=== PATIENT | female | born 1950 | race Caucasian/White ===

== ENCOUNTER 2020-02-12 20:43 | Inpatient (IN) | payer MEDICARE, BC, SELFPAY ==
[2020-02-12] VITALS (29 sets, daily range): BP systolic 123–170; BP diastolic 53–89; PULSE 66–91; RESP 15–25; TEMP 36.6–36.7; O2SAT 94–97
--- NOTE | 2020-02-12 20:52 | W.PM.HP.N ---
Date of service: 02/12/20 Time of Service: 20:52 Assessment and Plan Assessment and plan (1) Chest pain at rest: Status: Acute Assessment and plan: R/O NM Troponin levels have been negative. EKG showed anterolateral ST depression; repeat in AM and prn CP Cont heparin and nitroglycerin drips. ASA daily. Loading dose of Plavix 300mg given. Cont Plavix 75mg po daily. Planning transfer to [facility] tomorrow. Arrangements made by ED physician, Dr Childers, at [facility]. Telemetry. (2) Essential hypertension: Status: Acute Assessment and plan: Appx 1 month ago initiated on low dose amlodipine at 2.5mg daily. Cont and monitor BP (3) Glaucoma: Status: Chronic Assessment and plan: Cont home eye drops. History of Present Illness History of Present Illness Chief Complaint: Chest pain Narrative: This is a 69 yo female with a PMH of recently dxd HTN, glaucoma acute stress disorder, neuropahty of feet. No prior h/o CAD. She presented to the ED at [facility] with c/o central chest pressure that radiated to her back / upper scapula and down both arms. She described noting her heart was beating somewhat fast and she developed mild SOA and diaphoresis. No N/V. She did endorse a residual MILLIGAN afterwards. She had just woken from a nap when this occurred. It persisted at it's peak for appx 20 mins. She reported a similar episode appx 1 week prior. At the time of transfer to [facility] her pain was a 0.5/10. Her presenting vital signs at [facility] were: RR 18, HR 102, BP 163/91, T 96.1, ?RA O2 sat. of 95% Pain level 4. WBC count 7.0. Hgb 15.1. Cr 0.7. Mg 2.4. K 3.6. LFTs normal. Her EKG showed mild anterolateral ST depression. Her troponin was negative x 3. CXR was normal. She denied cough/fever/chills. ED physician spoke with Manager Product Design at [facility]; no bed available but plan on accepting her in transfer tomorrow. Heparin and Nitroglycerine drips initiated. Pt stable upon transfer to [facility]. Her PMH, SH and social history were reviewed in documents from [facility]. Review of Systems All systems reviewed & are unremarkable except as noted in HPI and below Exam Const General: cooperative, comfortable and no acute distress Nutritional Appearance: overweight Orientation: alert and oriented x3 Eyes Sclera: sclerae normal EOM: EOM intact bilaterally Neck Neck: full ROM and no JVD Resp Effort & Inspection: normal respiratory effort Auscultation: clear to auscultation bilaterally Cardio Rate: regular rate Rhythm: regular rhythm Heart Sounds: S1 normal and S2 normal GI Palpation: soft and nontender Auscultation: normal bowel sounds Skin General skin exam: no rashes or lesions noted Extrem General: no pedal edema and no calf tenderness Psych Appearance: grossly normal Mental Status: mental status grossly normal Speech and Movement: speech and movement normal Affect: normal affect Attitude: cooperative
[2020-02-12] MEDS: Latanoprost 0.005% 2.5 ML BTL OU (23:35)
[2020-02-13] VITALS (50 sets, daily range): BP systolic 97–165; BP diastolic 49–102; PULSE 61–85; RESP 13–28; TEMP 36.3–36.4; O2SAT 91–96
[2020-02-13] MEDS: Acetaminophen 325 MG TAB 650 MG PO (00:08)
--- NOTE | 2020-02-13 00:38 | NUR.NOTE ---
Nursing Note: train engineer at bedside to obtain 0001 aPTT.
[2020-02-13 01:03] LABS: PTT Activated 61.2 sec (21.0-31.4)
[2020-02-13 06:30] LABS: Abs Immature Grans 0.01 10^3/uL (0.0-0.06); Absolute Basophil Count 0.08 10^3/uL (0.0-0.2); Absolute Lymphocyte Count 2.32 10^3/uL (1.2-3.4); Absolute Neutrophil Count 3.78 10^3/uL (1.2-6.7); Basophils % 1.1; Eosinophils % 2.8; HCT 44.3 % (36.0-46.0); HGB 14.2 g/dL (11.2-15.7); Immature Grans % 0.1; Lymphocytes % 32.7; MCH 28.7 pg (27.0-33.0); MCHC 32.1 % (32.0-36.0); MCV 89.5 fL (80-95); MPV 10.3 fL (8.0-11.0); Monocytes % 9.9; Neutrophils % 53.4; Nucleated RBC 0 %; Platelet Count 280 10^3/uL (130-400); RBC 4.95 10^6/uL (3.93-5.22); RDW 13.1 % (11.7-14.6); RDW-SD 42.9 fL; WBC 7.09 10^3/uL (4.4-10.8)
[2020-02-13 06:47] LABS: ALT 26 U/L (14-59); AST 26 U/L (15-37); Albumin 3.4 g/dL (3.4-5.0); Alkaline Phosphatase 86 U/L (46-116); Anion Gap 8.7 mmol/L (3-11); BUN 21 mg/dL (7-18); Bilirubin, Total 0.3 mg/dL (0.2-1.0); CO2 26.3 mmol/L (21.0-32.0); Calcium 8.8 mg/dL (8.5-10.1); Calculated LDL 106 mg/dL (<100); Chloride 107 mmol/L (98-107); Cholesterol 186 mg/dL (<200); Glucose 112 mg/dL (74-106); HDL Cholesterol 50 mg/dL (40-60); Potassium 3.3 mmol/L (3.5-5.1); Sodium 142 mmol/L (136-145); Triglyceride 153 mg/dL (<150)
--- NOTE | 2020-02-13 08:00 | RT.EKG_ITS ---
APPROVED REPORT Exam: Resting ECG Patient Location: I HR:77 bpm ECG Measurements Heart Rate 77 AXIS OR 157 P 49 QRSd 89 QRS 22 QT 403 T 117 QTc 455 Conclusion Sinus rhythm...normal P axis, V-rate 60- 99 Repol abnrm suggests ischemia, lateral leads...ST dep, T neg, I aVL V5 V6
[2020-02-13 08:37] LABS: Troponin I 0.21 ng/mL (<0.06)
--- NOTE | 2020-02-13 08:42 | PDOC.CMIN ---
- If Service Date Differs Date of service: 02/13/20 Time of Service: 08:42 Care Management Initial Assess REASON FOR HOSPITALIZATION:: Chest Pain PAST MEDICAL HISTORY/PAST SURGICAL HISTORY:: None noted PREVIOUS FUNCTIONAL STATUS/SOCIAL/FAMILY SUPPORTS:: Tiffanie lives in a single family home in [place], [place] with her of 50 years, Severo. They have 2 children, a son and a daughter and 4 grandchildren. Their daughter lives in [place], [place] and their son lives in [place], [place]. 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 They met at and got engaged in their senior year. Tiffanie is independent and active at baseline. CURRENT FUNCTIONAL STATUS:: Tiffanie was sitting up in bed when CM met with her. She was very pleasant and engaged readily in conversation. Tiffanie shared a story about her grand daughter who got an ECOLI 0157 infection at age 4 and ended up with multi-organ system involvement. She required a kidney transplant and other surgeries, but is now 16 and doing extremely well. She, like so many other people, has not been able to see her family for months due to Covid. Tiffanie is awaiting a bed at [facility]. She also shared that both her brother and sister have has heart attacks, as well as her young niece. ADVANCE DIRECTIVES:: none on file but has completed them and believes [facility] has a copy. Has patient been provided with info about the portal/API?: No Did the patient sign up for the portal?: No (goes to [facility]) CODE STATUS:: Full Code INSURANCE COVERAGE / FINANCIAL ISSUES:: Medicare. BC BS CURRENT HOME/COMMUNITY SERVICES/EQUIPMENT:: none PRIMARY CARE PHYSICIAN:: none POTENTIAL DISCHARGE NEEDS:: follow up with cardiology, PCP and discharge plan of care PATIENT/FAMILY EDUCATION NEEDS:: Discharge plan, follow up plan, limitations, Ask Me Three TRANSPORTATION:: via ambulance coordinated by nursing vine fruit farming supervisor PLAN:: Tiffanie is waiting for a bed at [facility]. She will be transported by ambulance coordinated by nursing vine fruit farming supervisor. CM will continue to support patient and family until transfer occurs.
[2020-02-13 08:45] LABS: PTT Activated 59.6 sec (21.0-31.4)
[2020-02-13] MEDS: DULoxetine 30 MG CAP 60 MG PO (08:50)
[2020-02-13] MEDS: Metoprolol 12.5 MG TAB PO ×2 (08:50→10:00)
[2020-02-13] MEDS: Aspirin 81 MG CHEW PO (08:50)
[2020-02-13] MEDS: Atorvastatin 40 MG TAB 80 MG PO (08:50)
[2020-02-13] MEDS: Clopidogrel 75 MG TAB PO (08:50)
[2020-02-13] MEDS: amLODIPine 2.5 MG TAB PO (08:50)
[2020-02-13] MEDS: Potassium Chloride 20 MEQ TABCR 40 MEQ PO (08:50)
--- NOTE | 2020-02-13 09:22 | PGE_ITS ---
Date of Service Date of service: 02/13/20 Time of Service: 09:22 Assessment and Plan Assessment and plan (1) Non-STEMI (non-ST elevated myocardial infarction): Status: Acute Assessment and plan: Patient allegedly had nonobstructive disease 8 to 10 years ago per cardiac catheterization. I do not have her catheterization results. Nevertheless she has a positive troponin of 0.21 this morning whereas it had been normal yesterday. This may be blood pressure related and due to stress-induced ischemia. Her EKG is not showing any ST elevation but rather shows LVH with strain. Nevertheless this warrants further evaluation and I agree with continued heparinization as well as dual antiplatelet therapy. Furthermore I have added beta-helen at Lopressor 25 mg every 8 hours for both rate control as well as blood pressure control and anti-ischemic effect. I have added atorvastatin at 80 mg nightly to her regimen. Since she is on nitroglycerin drip I Maggie withhold her amlodipine for now. The plan is for her to be transferred to [facility] where cardiology can evaluate her. Furthermore she needs echocardiogram to evaluate her heart murmur which I think is aortic sclerosis by auscultation but could be aortic stenosis. I did not appreciate any bruits in her neck nor any diminution in her carotid pulses. Echocardiogram is not available today at [facility]. She remains hemodynamically stable and her chest pain is relatively well controlled. (2) Essential hypertension: Status: Acute Assessment and plan: Nitrates and beta-blockers for anti-ischemic effect as well as blood pressure control. (3) Hypercholesterolemia: Status: Acute Assessment and plan: Begin high-dose statin with atorvastatin 80 mg nightly Subjective Subjective Interval history since last seen: 69-year-old female former smoker who quit 18 years ago recently diagnosed with essential hypertension started on amlodipine about a month ago who presented with symptoms of chest tightness with radiation into her shoulders and down both arms and into her back associated with a headache onset at 3 pm yesterday, not associated w/ exertion. Patient states that her BP yesterday was running in the 150's systolic. She had similar episodes about a week ago but not as severe that were transient. Both episodes occurred while at rest. Patient had a remote cardiac work-up about 8 to 10 years ago in which she had a cardiac catheterization at [facility] [place] [facility] and was told that she had no significant coronary disease. She had a follow-up with Dr. Moore from [facility] whom she saw here at [facility] . She said that he had told her that her heart was in good shape and she did not need to worry about a heart attack. Nevertheless she has multiple risk factors including essential hypertension, multiple family members with coronary artery disease including a sister and her brother who both had heart attacks in their late 60s or early 70s. Patient denies any personal history of diabetes mellitus or hyperlipidemia although her lipid profile this morning shows that she has some mild hypercholesterolemia. She presented to [facility] in [facility] last night after the acute onset of chest discomfort around 3:30 in the afternoon. Because there were no critical care beds available at [facility] she was transferred from the emergency room to our ICU on a heparin and nitroglycerin drip. I cannot find any EKGs from [facility] her initial troponin was less than 0.06. This morning's troponin is elevated at 0.21. Repeat ECG this morning shows sinus rhythm with LVH with strain pattern with ST depression in limb leads I and aVL as well as V4 through V6. Chest pain is down to a 1 or 2 barely noticeable. She is currently on nitroglycerin drip at 10 mcg/min and a heparin drip at 1000 units/h. She was started on Plavix and aspirin last night and I am since added Lopressor to her regimen. [facility] was contacted last night and they reportedly have accepted her for transfer and we are currently awaiting a bed. I reviewed her labs and paperwork from [facility] but could not find an ECG from that facility. Exam Narrative Exam Narrative: Older female who appears to be younger than her stated age of 69 who is alert and oriented to person place time circumstance sitting up in her bed watching TV in no distress. Lungs are clear to auscultation. Heart is regular rate and rhythm with a harsh systolic murmur heard along the right upper sternal border as well as the left lower sternal border no thrill or heave. No gallop Abdomen soft and nontender with normal active bowel sounds no bruits Extremities without peripheral edema Neck without JVD Objective Last Vital Signs Temp 36.4 C L 02/13/20 03:16 Pulse 72 02/13/20 07:00 Resp 18 02/13/20 07:00 BP 158/66 H 02/13/20 07:00 Pulse Ox 94 02/13/20 07:00 Laboratory Results - last 24 hr 02/13/20 02/13/20 02/13/20 00:45 06:05 06:05 WBC 7.09 RBC 4.95 Hgb 14.2 Hct 44.3 MCV 89.5 MCH 28.7 MCHC 32.1 RDW 13.1 Plt Count 280 MPV 10.3 Immature Gran % 0.1 Neutrophils % 53.4 Lymphocytes % 32.7 Monocytes % 9.9 Eosinophils % 2.8 Basophils % 1.1 Nucleated RBC % 0 Absolute Neutrophils 3.78 Absolute Lymphocytes 2.32 Absolute Monocytes 0.70 Absolute Eosinophils 0.20 Absolute Basophils 0.08 APTT 61.2 H Sodium 142 Potassium 3.3 L Chloride 107 Carbon Dioxide 26.3 Anion Gap 8.7 BUN 21 H Creatinine 0.80 Estimated GFR/1.73 m2 >= 60.00 Glucose 112 H Calcium 8.8 Total Bilirubin 0.3 AST 26 ALT 26 Alkaline Phosphatase 86 Troponin I Total Protein 7.0 Albumin 3.4 Triglycerides 153 H Total Cholesterol 186 LDL Cholesterol, Calc 106 H HDL Cholesterol 50 02/13/20 02/13/20 06:05 08:15 WBC RBC Hgb Hct MCV MCH MCHC RDW Plt Count MPV Immature Gran % Neutrophils % Lymphocytes % Monocytes % Eosinophils % Basophils % Nucleated RBC % Absolute Neutrophils Absolute Lymphocytes Absolute Monocytes Absolute Eosinophils Absolute Basophils APTT 59.6 H Sodium Potassium Chloride Carbon Dioxide Anion Gap BUN Creatinine Estimated GFR/1.73 m2 Glucose Calcium Total Bilirubin AST ALT Alkaline Phosphatase Troponin I 0.21 H* Total Protein Albumin Triglycerides Total Cholesterol LDL Cholesterol, Calc HDL Cholesterol
[2020-02-13 11:31] LABS: Troponin I 0.19 ng/mL (<0.06)
[2020-02-13 12:34] LABS: COVID-19 RT-PCR UVMMC Result Negative (Negative)
[2020-02-13] MEDS: Metoprolol 25 MG TAB PO (15:47)
--- NOTE | 2020-02-13 16:32 | DSE_ITS ---
DS: Diagnosis Discharge Diagnosis (1) Non-STEMI (non-ST elevated myocardial infarction): Status: Acute Asessment and Plan: Patient was admitted with symptoms of unstable angina associated with an exacerbation of her hypertension. EKG demonstrated sinus rhythm with LVH with strain pattern. See admission H&P. Patient was treated nitroglycerin drip and heparin drip and started on Plavix and aspirin. Chest pain improved with a nitroglycerin drip at 10 mcg/min. Initial troponin taking at [facility] last night was less than 0.06. Repeat troponin I level this morning was 0.21 and a repeat level later in the day was 0.19. Patient remained hemodynamically stable. She was started on metoprolol 25 mg p.o. every 8 hours along with atorvastatin 80 mg. Patient was transferred to [facility] to the cardiology service. (2) Essential hypertension: Status: Acute (3) Hypercholesterolemia: Status: Acute Discharge Plan Disposition Patient Disposition: [facility] Condition: Stable Discharge Details Reason For Visit: CHEST PAIN R/O MYOCARDIAL INFARCTION Admit Date/Time: 02/12/20 20:43 Admit Provider: Gaurav Michaels Attending Provider: Gaurav Michaels Hospital Course Hospital Course: 69-year-old female with recently diagnosed essential hypertension presented to her local emergency room at [facility] in [facility] with acute onset of anginal quality pain while at rest. Initial troponin level was less than 0.06. Pain was relieved with nitroglycerin and patient was started on a nitroglycerin drip and heparin drip. Patient was transferred from [facility] in [facility] to [facility] in [facility] because of lack of ICU beds in [place]. Patient was directly admitted to our medical ICU on a heparin and nitroglycerin drip after having been started on Plavix and aspirin. Her initial EKG from [place] was not found. Subsequent EKG demonstrated sinus rhythm with LVH with strain pattern with ST depression in limb leads I, aVL, V4 through V6. Chest pain was improved with nitroglycerin drip at 10 mcg/min. Patient was started on atorvastatin 80 mg along with Lopressor 25 mg p.o. 3 times daily. [facility] was contacted and they agreed to accept the patient given her elevated troponin level of 0.21. No cardiology services or echocardiography is available at [facility] today. Patient is remained relatively comfortable on her current settings. See her admission H&P for further details. Home Meds and New Rx's Prescriptions: No Action amlodipine 2.5 mg Tablet 2.5 mg PO DAILY RF: 0 calcium carbonate-vitamin D3 [Calcium 600 + D(3)] 600 mg(1,500mg) -400 unit Ta blet 1 tab PO BID RF: 0 Combigan 0.2-0.5 % Drops 1 drp ophthalmic (eye) BID RF: 0 duloxetine 60 mg Capsule,Delayed Release(Dr/Ec) 1 mg PO DAILY RF: 0 ibuprofen 200 mg Capsule 400 mg PO DAILY PRN (Reason: Pain) RF: 0 latanoprost 0.005 % Drops 1 drp ophthalmic (eye) QHS RF: 0 Discharge Instructions Instructions: Acute Coronary Syndrome (DC) Additional Instructions: your home medications will be reconciled upon discharge from [facility] Activity:: Activity as Tolerated Diet:: heart healthy Discharge Orders Discharge Orders: Discharge Order (Routine); Ordered 02/13/20 Ordered By: Aureliano Sanchez DS: Summary Status at Discharge Functional status at discharge: independent ambulation Overall status at discharge: patient is not back to baseline Mental Status: mental status grossly normal Speech and Movement: speech and movement normal Mood: congruent mood Affect: normal affect Time Spent with Patient providing and/or coordinating discharge services: Less than 30 minutes Exam Narrative Exam Narrative: Older female who appears to be younger than her stated age of 69 who is alert and oriented to person place time circumstance sitting up in her bed watching TV in no distress. Lungs are clear to auscultation. Heart is regular rate and rhythm with a harsh systolic murmur heard along the right upper sternal border as well as the left lower sternal border no thrill or heave. No gallop Abdomen soft and nontender with normal active bowel sounds no bruits Extremities without peripheral edema Neck without JVD Psych Mental Status: mental status grossly normal Speech and Movement: speech and movement normal Mood: congruent mood Affect: normal affect DS: Data Vitals/I&O Vitals and I&O: Vital Signs Temperature 36.4 C L 02/13/20 15:40 Temperature Source Temporal Artery Scan 02/13/20 15:40 Pulse 63 02/13/20 15:31 Pulse 65 02/13/20 15:31 Respiratory Rate 17 02/13/20 15:40 Respiratory Effort 02/13/20 15:40 Respiratory Depth Normal 02/13/20 15:40 Respiratory Pattern Normal 02/13/20 15:40 Blood Pressure 124/63 02/13/20 15:31 Blood Pressure Mean 77 02/13/20 15:31 Blood Pressure Position Supine 02/13/20 12:00 Pulse Oximetry 94 02/13/20 15:40 Oxygen Delivery Method Room Air 02/13/20 15:40 Oxygen Flow Rate 0 02/13/20 15:40 Pain Level 30 02/13/20 15:40 Intake & Output 02/12/20 02/13/20 02/13/20 23:59 11:59 23:59 Intake Total 0.1 / 0.1 498.250 / 569.750 71.5 / 569.750 Output Total 500 / 500 350 / 625 275 / 625 Balance -499.9 / -499.9 148.250 / -55.250 -203.5 / -55.250 Weight 86 kg 85.9 kg Intake: IV 0.1 / 0.1 198.250 / 269.750 71.5 / 269.750 Oral 300 / 300 Output: Urine 500 / 500 350 / 625 275 / 625 Other: Urine Color Yellow Yellow Urine Appearance Clear Clear Urine Odor Normal Normal Comment unable to assess clarity - mixed with stool Stool Size Large Stool Characteristics Soft Formed Brown Voiding Methods Bedside Commode Bedside Commode Data Completed and Pending Labs on day of discharge: Labs from last 24 hours 02/13/20 02/13/20 02/13/20 11:05 08:15 06:05 WBC RBC Hgb Hct MCV MCH MCHC RDW Plt Count MPV Immature Gran % Neutrophils % Lymphocytes % Monocytes % Eosinophils % Basophils % Nucleated RBC % Absolute Neutrophils Absolute Lymphocytes Absolute Monocytes Absolute Eosinophils Absolute Basophils APTT 59.6 H Sodium Potassium Chloride Carbon Dioxide Anion Gap BUN Creatinine Estimated GFR/1.73 m2 Glucose Calcium Total Bilirubin AST ALT Alkaline Phosphatase Troponin I 0.19 H* 0.21 H* Total Protein Albumin Triglycerides Total Cholesterol LDL Cholesterol, Calc HDL Cholesterol COVID-19 PCR Nasopharyn COVID-19 PCR Ref Test Perform Site 02/13/20 02/13/20 02/13/20 06:05 06:05 00:45 WBC 7.09 RBC 4.95 Hgb 14.2 Hct 44.3 MCV 89.5 MCH 28.7 MCHC 32.1 RDW 13.1 Plt Count 280 MPV 10.3 Immature Gran % 0.1 Neutrophils % 53.4 Lymphocytes % 32.7 Monocytes % 9.9 Eosinophils % 2.8 Basophils % 1.1 Nucleated RBC % 0 Absolute Neutrophils 3.78 Absolute Lymphocytes 2.32 Absolute Monocytes 0.70 Absolute Eosinophils 0.20 Absolute Basophils 0.08 APTT 61.2 H Sodium 142 Potassium 3.3 L Chloride 107 Carbon Dioxide 26.3 Anion Gap 8.7 BUN 21 H Creatinine 0.80 Estimated GFR/1.73 m2 >= 60.00 Glucose 112 H Calcium 8.8 Total Bilirubin 0.3 AST 26 ALT 26 Alkaline Phosphatase 86 Troponin I Total Protein 7.0 Albumin 3.4 Triglycerides 153 H Total Cholesterol 186 LDL Cholesterol, Calc 106 H HDL Cholesterol 50 COVID-19 PCR Nasopharyn COVID-19 PCR Ref Test Perform Site 02/13/20 00:00 WBC RBC Hgb Hct MCV MCH MCHC RDW Plt Count MPV Immature Gran % Neutrophils % Lymphocytes % Monocytes % Eosinophils % Basophils % Nucleated RBC % Absolute Neutrophils Absolute Lymphocytes Absolute Monocytes Absolute Eosinophils Absolute Basophils APTT Sodium Potassium Chloride Carbon Dioxide Anion Gap BUN Creatinine Estimated GFR/1.73 m2 Glucose Calcium Total Bilirubin AST ALT Alkaline Phosphatase Troponin I Total Protein Albumin Triglycerides Total Cholesterol LDL Cholesterol, Calc HDL Cholesterol COVID-19 PCR Negative Nasopharyn COVID-19 PCR Not Applicable Ref Test Perform Site [facility] Social History Smoking/Tobacco Use Status: Former Tobacco Use
== END 2020-02-13 17:37 | disposition short-term general hospital (02) | DRG 282 ==
PROVIDERS: Internal Medicine; Admitting Provider Family Medicine; Visit Provider Family Medicine
DX: I21.4 Non-ST elevation (NSTEMI) myocardial infarction; I35.0 Nonrheumatic aortic (valve) stenosis; G62.9 Polyneuropathy, unspecified; E78.00 Pure hypercholesterolemia, unspecified; I10 Essential (primary) hypertension; Z87.891 Personal history of nicotine dependence
CPT/HCPCS: 36415; 80053; 80061; 99223; 99233; 99238; U0003; 84484; 85025; 85730; 93005; 93010; J3490

== ENCOUNTER 2021-11-22 08:05 | Outpatient (CLI) | payer MEDICARE, BC, SELFPAY ==
--- NOTE | 2021-11-22 08:00 | RT.EKG_ITS ---
APPROVED REPORT Exam: Resting ECG Reason for Exam: MT Patient Location: O HR:83 bpm ECG Measurements Heart Rate 83 AXIS AL 175 P 56 QRSd 96 QRS 18 QT 385 T 107 QTc 453 Conclusion Sinus rhythm...normal P axis, V-rate 50- 99 Left atrial enlargement...P, P'>60mS, <-0.15mV V1 Abnormal R-wave progression, early transition...QRS area>0 in V2 LVH with secondary repolarization abnormality...multi-LVH criteria, abnrm ST-T Baseline wander in lead(s) V5,V6
== END 2021-11-22 08:06 | disposition home or self-care (01) ==
LOC: DI.CARD 08:06
PROVIDERS: PCP Internal Medicine; Visit Provider Internal Medicine Cardiovascular Disease
DX: I21.4 Non-ST elevation (NSTEMI) myocardial infarction (principal); R94.31 Abnormal electrocardiogram [ECG] [EKG]
CPT/HCPCS: 93010

== ENCOUNTER → 2021-11-22 11:18 | Outpatient (BNVA) | payer MEDICARE, BC, SELFPAY | PROVIDERS: PCP Internal Medicine; Referring Provider Internal Medicine; Visit Provider Internal Medicine Cardiovascular Disease | DX: I25.2 Old myocardial infarction (principal); I34.0 Nonrheumatic mitral (valve) insufficiency; I20.8 Other forms of angina pectoris; I10 Essential (primary) hypertension; G47.30 Sleep apnea, unspecified | CPT/HCPCS: 93005; 99203 ==

== ENCOUNTER → 2022-11-21 10:34 | Outpatient (BNVA) | payer MEDICARE, BC, SELFPAY | PROVIDERS: PCP Internal Medicine; Referring Provider Internal Medicine; Visit Provider Internal Medicine Cardiovascular Disease | DX: I20.8 Other forms of angina pectoris (principal); I10 Essential (primary) hypertension | CPT/HCPCS: 99213 ==

== ENCOUNTER → 2023-09-10 02:23 | Outpatient (CLI) | payer MEDICARE, BC, SELFPAY ==
--- NOTE | 2023-09-10 12:30 | DI.US_ITS ---
APPROVED REPORT EXAM: Comprehensive 2D, Doppler, and color-flow Echocardiogram Patient Location: Out-Patient [employer] Librarian: Andrew White RDCS (AE) Indications: CNO, LVH, mitral regurg Other Information Technically limited study due to body habitus. Conclusion Mild concentric left ventricular hypertrophy. Ejection fraction is 55 to 60%. Wall motion is normal Normal right ventricular size and function Both atria are normal in size Trileaflet aortic valve without stenosis or regurgitation Mildly thickened mitral leaflets. Mild mitral regurgitation Estimated right ventricular systolic pressure is 27 mmHg Wall motion Left Ventricle The left ventricle is normal size. The left ventricular systolic function is normal. The left ventric ular ejection fraction is within the normal range. Mild concentric left ventricular hypertrophy. Ther e is normal LV segmental wall motion. There is no ventricular septal defect visualized. LVEF is 55-60 %. Right Ventricle The right ventricle is normal size. The right ventricular systolic function is normal. Atria The left atrium size is normal. The right atrium size is normal. The interatrial septum is intact wit h no evidence for an atrial septal defect. Aortic Valve The aortic valve is normal in structure. Aortic valve is trileaflet. There is no aortic valvular sten osis. No aortic regurgitation is present. Mitral Valve Mitral valve leaflets are mildly thickened. No evidence of mitral valve stenosis. Mild mitral regurgi tation. Tricuspid Valve The tricuspid valve is normal in structure. There is no tricuspid valve stenosis. Mild tricuspid regu rgitation. The RVSP is 27.0 mmHg. Pulmonic Valve The pulmonary valve is normal in structure. There is no pulmonic valvular stenosis. There is no pulmo salvador valvular regurgitation. Great Vessels The aortic root is normal in size. The ascending aorta is normal in size. Aortic arch is normal in ca liber. IVC is normal in size and collapses >50% with inspiration. Pericardium There is no pericardial effusion. 2D Dimensions IVSD d PLAX 1.23 cm F: 0.6-1.0 Ao Root d 2.71 cm F: 2.7 - 3.3 LVPW d PLAX 1.21 cm F: 0.6 - 1.0 Ao Asc Diam d 2.89 cm F: 2.3 - 3.1 LVID d PLAX 4.12 cm F: 3.8 - 5.2 LVDs 2.81 cm F: 2.2 - 3.5 LV EF Teichholz 60.3 % FS 31.82 % LV EDV (Teich) 74.9 mL LV ESV (Teich) 29.7 mL Stroke Vol Index (Teich) 21.94 M-Mode TAPSE 1.62 cm (M/F) >1.7 Auto EF LV EDV A4C 111.5 mL LV EDV A2C 70.6 mL LV EDV BP LV ESV A4C 50.1 mL LV ESV A2C 30.0 mL LV ESV BP LVEF(%) A4C 55.1 % LVEF(%) A2C 57.5 % LVEF(%) BP LV SV A4C 61.4 ml LV SV A2C 40.6 ml LV SV BP LV CO A4C 3.5 L/min LV CO A2C 2.4 L/min LV CO BP HR A4C 57.79 BPM HR A2C 58.73 BPM LV EDV Index (BP) LA Volume LA Length A4C 4.2 cm LA Length A2C 5.8 cm LA Area A4C s 11.11 cm2 LA Area A2C s 15.18 cm2 LA Vol A4C A-L 25.16 mL LA Vol A2C A-L 34.03 mL LA Vol Biplane A-L 34.4 mL LA Vol/BSA A4C A-L LA Vol/BSA A2C A-L LA Vol/BSA BP A-L 16.7 mL/m2 LA Vol A4C MOD 24.2 mL LA Vol A2C MOD 33.1 mL LA Vol BP MOD 33.2 mL RA Volume RA Area A4C 6.0 cm2 RA ESV A4C (A-L) 7.2mL RA Vol/BSA A4C A-L RA Length A4C 4.3 cm RA ESV A4C (MOD) 7.3mL LV Diastology MV E' medial 0.064 (>0.07 m/s) MV E Vmax 1.02 (0.4-1.3 m/s) MV E/E' MED 15.95 (<14) MV A Vmax 1.05 (0.4-1.3 m/s) MV E' lateral 0.059 (>0.1 m/s) E/A Ratio 1.0 MV E/E' LAT 17.29 (<14) MV E' Average 0.061 m/s MV E/E'(average) 16.59 Aortic Valve AoV Vmax 1.17 m/s LVOT Vmax 1.27 m/s AoV Peak Grad 5.5 mmHg LVOT Peak Grad 6.4 mmHg AoV Area (Vmax) 2.12 cm2 LVOT VTI 0.311 m AoV VTI 0.268 m LVOT Mean Grad 3.6 mmHg AoV Mean Aniceto. 0.79 m/s LVOT SV 60.70 mL AoV Mean Grad 2.9 mmHg LVOT Diam s 1.55 cm AoV Area (VTI) 2.26 cm2 Velocity Ratio 1.09 Mitral Valve MV DT 177 (160-240 msec) MR Vmax 5.41 m/s MV Vmax TIPS 0.98 m/s MR VTI 2.212 m MV Mean Grad 1.7 (<2mmHg) MR Peak Grad 117.1 mmHg MV VTI 0.310 m MR Mean Grad 74.0 mmHg Pulmonary Valve PV Vmax 0.87 (0.5-1.5 m/s) RVOT Vmax 0.58 m/s PV Peak Grad 3.0 mmHg RVOT Peak Gr. 1.3 mmHg PV Mean Aniceto 0.55 m/s RVOT VTI 0.137 m PV Mean Grad 1.4 mmHg RVOT Mean Gr. 0.8 mmHg Tricuspid Valve RA Pressure 3.00 mmHg TR Vmax 2.45 m/s TR Peak Grad 23.9 mmHg RVSP (TR) 27.0 mmHg
== END ==
PROVIDERS: PCP Internal Medicine; Visit Provider Internal Medicine Cardiovascular Disease
DX: I51.7 Cardiomegaly (principal); I34.0 Nonrheumatic mitral (valve) insufficiency
CPT/HCPCS: 93306